=== PATIENT | female | born 1950 | race Caucasian/White ===

== ENCOUNTER → 2016-12-25 | Outpatient (CLI) | payer OTHER ==
[~2016-12-25] MED LIST: ALBU1AER9 INH; ATOR10TA88 PO; CALC-445 PO; CYCL10TA6 PO; FEXO1TAB46 PO; LORA-741 PO; OMEP20CA9 PO; PARO1TAB29 PO; PTDOPS OPB; VALS40TA2 PO; ZNTT/150 PO
--- NOTE | 2016-12-25 16:13 | MAMMOGRAPHY REPORT ---
BILATERAL DIGITAL SCREENING MAMMOGRAM WITH CAD: 12/25/2016 CLINICAL HISTORY: Routine screening examination. TECHNIQUE: Bilateral CC and MLO views were obtained. Current study was also evaluated with a Compute r Aided Detection (CAD) system. COMPARISON: Comparison is made to exams dated: 03/03/2013 mammogram, 03/10/2014 mammogram, 02/26/2011 m ammogram, and 02/02/2010 mammogram - [facility]. BREAST COMPOSITION: The tissue of both breasts is heterogeneously dense, which may obscure small ma sses. FINDINGS: There are groupings of round and punctate microcalcifications in the anterior right breast , and throughout the medial left breast that appear similar on all available prior mammograms dating back to at least 03/10/2008, therefore likely benign. No new suspicious mass, architectural distor tion or cluster of microcalcifications is seen. IMPRESSION: ACR BI-RADS CATEGORY 1: NEGATIVE There is no mammographic evidence of malignancy. A 1 year screening mammogram is recommended. The p atient will receive written notification of the results. Approximately 10% of breast cancers are not detected with mammography. A negative mammographic repor t should not delay biopsy if a clinically suggestive mass is present. Prudence Brody M.D. ay/:12/25/2016 13:37:33 Carpet Installer: Sangita GARCIA)(M), [facility] letter sent: Normal 1/2 BI-RADS Code: ACR BI-RADS Category 1: Negative
== END | disposition home or self-care (01) ==
LOC: C.MAMM 12:31
PROVIDERS: ATTEND Family Medicine
DX: Z12.31 Encounter for screening mammogram for malignant neoplasm of breast (principal)

== ENCOUNTER 2017-09-12 13:49 | Emergency (ER) | payer OTHER ==
[~2017-09-12] VITALS: Ht 152.4 cm; Wt 79.6 kg
[~2017-09-12 13:49] MED LIST changes: +ATOR10TA82 PO; -ATOR10TA88 PO
[2017-09-12 13:54] VITALS: TEMP 37; Ht 152.4 cm; Wt 79.6 kg
[2017-09-12 15:25] VITALS: O2SAT 97
--- NOTE | 2017-09-12 15:28 | DIAGNOSTIC IMAGING REPORT ---
SINGLE VIEW CHEST CLINICAL HISTORY: Hypertension. FINDINGS: An AP, portable, upright chest radiograph is obtained. No prior studies are available for comparison at the time of dictation. The examination is degraded by portable technique and apical ectopic positioning. The heart is top normal for projection and there is atherosclerotic calcification of the thoracic aorta. The pulmonary vasculature is noncongested. The lungs and pleural spaces are clear. No pneumothorax is seen. The skeletal structures are osteopenic. Chronic posttraumatic deformity is seen in the left proximal humerus. IMPRESSION: No acute cardiopulmonary abnormality. Electronically signed by: Andrae Chong M.D. 09/12/2017 3:26 PM Dictated Date/Time: 09/12/2017 3:25 PM
[2017-09-12 15:36] LABS: BASO % 0.4 %; BASO ABS # 0.03 K/uL (0-0.2); COMPLETE YES; EOS % 2.4 %; HEMATOCRIT 42.3 % (37-47); IG% 0.3 %; LYMPH ABS # 1.74 K/uL (1.2-3.4); MEAN CELL VOLUME 91.4 fL (80-100); MEAN CORPUSCULAR HEMOGLOBIN 29.4 pg (25-34); MEAN CORPUSCULAR HGB CONC 32.2 g/dl (32-36); MEAN PLATELET VOLUME 12.1 fL (7.4-10.4); MONO % 9.1 %; NEUT % 61.8 %; PLATELET COUNT 176 K/uL (130-400); RED BLOOD COUNT 4.63 M/uL (4.2-5.4); WHITE BLOOD COUNT 6.68 K/uL (4.8-10.8)
[2017-09-12 15:45] LABS: INR 0.9 (0.9-1.1); PARTIAL THROMBOPLASTIN RATIO 1.4; PROTHROMBIN TIME (PATIENT) 9.8 SECONDS (9.0-12.0)
[2017-09-12] MEDS ORDERED: ALBU18002 INH (15:50)
[2017-09-12] MEDS ORDERED: CALCCAP15 PO (15:50)
[2017-09-12] MEDS ORDERED: VALS40TA2 PO (15:50)
[2017-09-12] MEDS ORDERED: EYE DROPS OPB (15:52)
[2017-09-12 15:53] LABS: ALT/SGPT 20 U/L (12-78); AST/SGOT 16 U/L (15-37); BLOOD UREA NITROGEN 14 mg/dl (7-18); BUN/CREATININE RATIO 14.8 (10-20); CALCIUM 9.1 mg/dl (8.5-10.1); CARBON DIOXIDE 28 mmol/L (21-32); CHLORIDE 106 mmol/L (98-107); CREATININE 0.92 mg/dl (0.60-1.20); GLUCOSE 91 mg/dl (70-99); SODIUM 141 mmol/L (136-145)
[2017-09-12 16:04] LABS: ALKALINE PHOSPHATASE 73 U/L (45-117)
[2017-09-12 16:44] LABS: URINE APPEARANCE CLEAR (CLEAR); URINE BILIRUBIN NEG (NEG); URINE COLOR YELLOW; URINE NITRITE NEG (NEG); URINE SPECIFIC GRAVITY 1.006 (1.000-1.030); UROBILINOGEN NEG (NEG)
[2017-09-12] MEDS ORDERED: VALSARTAN 80 MG TAB PO STA (16:46)
[2017-09-12 16:56] LABS: MANUAL MICROSCOPIC REQUIRED? NO; REVIEW REQ? NO
--- NOTE | 2017-09-12 18:20 | EMERGENCY ROOM VISIT NOTE ---
History Report prepared by Kishore: Ketan Frederick Under the Supervision of: Dr. Gideon Condon M.D. First contact with patient: 14:44 Chief Complaint: HYPERTENSION Stated Complaint: HIGH BLOOD PRESSURE History of Present Illness The patient is a 66 year old female who presents to the Emergency Room with complaints of persistent hypertension beginning about a month ago. She states that her blood pressure was found to be 197/117 shortly prior to arrival. She is on 40 mg Diovan for HTN. The patient notes that she just had cataract surgery earlier this week as well as 17 days ago. She states that her blood pressure had been running high since before the surgery. She was seen by her PCP the day before her first surgery 18 days ago, but did not have her blood pressure medications changed. The patient also complains of a headache in various parts of her head, and generalized weakness. She notes that her vision is blurred, but she is unsure if this is due to the surgery. The patient has been taking her blood pressure regularly at home. Pt denies LOC, chills, diaphoresis, neck pain, chest pain, breathing difficulties, nausea, vomiting, abdominal pain, back pain, melena, hematochezia, urinary symptoms, numbness, weakness, lymphadenopathy, rash, or other complaints. She states that she occasionally feels feverish. Source of History: patient Onset: about a month ago Symptom Intensity: 197/117 Quality: other (hypertension) Timing: other (persistent) Associated Symptoms: + headache, + weakness (generalized) Review of Systems See HPI for pertinent positives and negatives. A total of ten systems were reviewed and were otherwise negative. Past Medical & Surgical Medical Problems: (1) Hypertension Nos Surgical Problems: (1) History of appendectomy (2) History of hysterectomy (3) History of lumpectomy (4) History of tonsillectomy Family History FHx: cancer Hypertension Social History Smoking Status: Never Smoker Alcohol Use: none Drug Use: none Marital Status: Housing Status: lives with family Occupation Status: retired Current/Historical Medications Scheduled Albuterol Sulfate (Proair Respiclick), 2 PUFFS INH PRN Atorvastatin (Lipitor), 10 MG PO DAILY Calcium Carbonate-Cholecalcife (Calcium Plus Vitamin D3), 1 CAP PO DAILY Fexofenadine Hcl (Malika), 180 MG PO DAILY Omeprazole (Prilosec), 20 MG PO DAILY Paroxetine (Paxil), 40 MG PO DAILY Ranitidine (Zantac), 150 MG PO BID Valsartan (Diovan), 40 MG PO DAILY [Eye Drops], 1 DROP OPB UD Scheduled PRN Cyclobenzaprine Hcl (Flexeril), 10 MG PO TID PRN for Pain Lorazepam (Ativan), 0.5-1 MG PO TID PRN for Anxiety/Agitation Allergies Coded Allergies: Molds and Smuts (Unverified Allergy, Mild, 09/12/17) Sulfa Drugs (Unverified Allergy, Mild, 09/12/17) Tetracycline (Unverified Allergy, Mild, 09/12/17) Minocycline (Unverified Allergy, Unknown, Unknown, 09/12/17) Penicillins (Verified Allergy, Unknown, RASH, 01/31/15) Physical Exam Vital Signs Date Time Temp Pulse Resp B/P (MAP) Pulse Ox O2 Delivery O2 Flow Rate FiO2 09/12/17 16:19 70 18 197/119 96 Room Air 09/12/17 15:31 65 09/12/17 15:26 67 18 219/127 96 Room Air 09/12/17 15:25 97 Room Air 09/12/17 15:25 97 Room Air 09/12/17 13:54 37.0 77 20 178/119 97 Room Air Physical Exam GENERAL: Awake, alert, well appearing, no distress HENT: Normocephalic, atraumatic. TM's normal. Oropharynx unremarkable. EYES: PERRL. EOMI. Normal conjunctiva. Sclera non-icteric. NECK: Supple. No nuchal rigidity. FROM. No JVD or bruit. RESPIRATORY: CTA CARDIAC: RRR. No murmur. ABDOMEN: Soft, non distended. No tenderness to palpation. No rebound or guarding. No masses. RECTAL: Deferred. MUSCULOSKELETAL: Unremarkable. No edema. No discoloration. Gross motor strength symmetric. NEURO: Cranial nerves 2-12 grossly intact. Normal sensorium. No sensory or motor deficits noted. Speech normal. No pronator drift. SKIN: No rash or jaundice noted. LYMPH: No adenopathy. Medical Decision & Procedures ER Provider Diagnostic Interpretation: X-ray: Per my interpretation, radiologist review. SINGLE VIEW CHEST FINDINGS: An AP, portable, upright chest radiograph is obtained. No prior studies are available for comparison at the time of dictation. The examination is degraded by portable technique and apical ectopic positioning. The heart is top normal for projection and there is atherosclerotic calcification of the thoracic aorta. The pulmonary vasculature is noncongested. The lungs and pleural spaces are clear. No pneumothorax is seen. The skeletal structures are osteopenic. Chronic posttraumatic deformity is seen in the left proximal humerus. IMPRESSION: No acute cardiopulmonary abnormality. Electronically signed by: Andrae Chong M.D. 09/12/2017 3:26 PM Laboratory Results 09/12/17 15:09 Red Blood Count 4.63, Mean Corpuscular Volume 91.4, Mean Corpuscular Hemoglobin 29.4, Mean Corpuscular Hemoglobin Concent 32.2, Mean Platelet Volume 12.1, Neutrophils (%) (Auto) 61.8, Lymphocytes (%) (Auto) 26.0, Monocytes (%) (Auto) 9.1, Eosinophils (%) (Auto) 2.4, Basophils (%) (Auto) 0.4, Neutrophils # (Auto) 4.12, Lymphocytes # (Auto) 1.74, Monocytes # (Auto) 0.61, Eosinophils # (Auto) 0.16, Basophils # (Auto) 0.03 09/12/17 15:09 Test 09/12/17 15:09 09/12/17 16:15 White Blood Count 6.68 K/uL (4.8-10.8) Red Blood Count 4.63 M/uL (4.2-5.4) Hemoglobin 13.6 g/dL (12.0-16.0) Hematocrit 42.3 % (37-47) Mean Corpuscular Volume 91.4 fL (80-100) Mean Corpuscular Hemoglobin 29.4 pg (25-34) Mean Corpuscular Hemoglobin Concent 32.2 g/dl (32-36) Platelet Count 176 K/uL (130-400) Mean Platelet Volume 12.1 fL (7.4-10.4) Neutrophils (%) (Auto) 61.8 % Lymphocytes (%) (Auto) 26.0 % Monocytes (%) (Auto) 9.1 % Eosinophils (%) (Auto) 2.4 % Basophils (%) (Auto) 0.4 % Neutrophils # (Auto) 4.12 K/uL (1.4-6.5) Lymphocytes # (Auto) 1.74 K/uL (1.2-3.4) Monocytes # (Auto) 0.61 K/uL (0.11-0.59) Eosinophils # (Auto) 0.16 K/uL (0-0.5) Basophils # (Auto) 0.03 K/uL (0-0.2) RDW Standard Deviation 46.4 fL (36.4-46.3) RDW Coefficient of Variation 13.8 % (11.5-14.5) Immature Granulocyte % (Auto) 0.3 % Immature Granulocyte # (Auto) 0.02 K/uL (0.00-0.02) Prothrombin Time 9.8 SECONDS (9.0-12.0) Prothromb Time International Ratio 0.9 (0.9-1.1) Activated Partial Thromboplast Time 36.4 SECONDS (21.0-31.0) Partial Thromboplastin Ratio 1.4 Anion Gap 7.0 mmol/L (3-11) Est Creatinine Clear Calc Drug Dose 56.2 ml/min Estimated GFR () 75.2 Estimated GFR (Non- 64.9 BUN/Creatinine Ratio 14.8 (10-20) Calcium Level 9.1 mg/dl (8.5-10.1) Total Bilirubin 0.3 mg/dl (0.2-1) Direct Bilirubin < 0.1 mg/dl (0-0.2) Aspartate Amino Transf (AST/SGOT) 16 U/L (15-37) Alanine Aminotransferase (ALT/SGPT) 20 U/L (12-78) Alkaline Phosphatase 73 U/L (45-117) Troponin I < 0.015 ng/ml (0-0.045) Total Protein 7.7 gm/dl (6.4-8.2) Albumin 4.0 gm/dl (3.4-5.0) Lipase 212 U/L (73-393) Thyroid Stimulating Hormone (TSH) 1.520 uIu/ml (0.300-4.500) Urine Color YELLOW Urine Appearance CLEAR (CLEAR) Urine pH 7.0 (4.5-7.5) Urine Specific Falcon 1.006 (1.000-1.030) Urine Protein NEG (NEG) Urine Glucose (UA) NEG (NEG) Urine Ketones NEG (NEG) Urine Occult Blood NEG (NEG) Urine Nitrite NEG (NEG) Urine Bilirubin NEG (NEG) Urine Urobilinogen NEG (NEG) Urine Leukocyte Esterase NEG (NEG) Laboratory results reviewed by me Medications Administered Medications (Trade) Dose Ordered Sig/Pamela Route Start Time Stop Time Status Last Admin Dose Admin Valsartan (Diovan Tab) 80 mg NOW STAT PO 09/12/17 16:46 09/12/17 16:47 DC 09/12/17 18:01 80 MG ECG Indication: other (hypertension) Rate (beats per minute): 67 Rhythm: normal sinus Findings: RBBB, no acute ischemic change, no ectopy ED Course 145: The patient was evaluated in room B4B. A complete history and physical exam was performed. 1637: I reassessed the patient. She is resting comfortably. 1645: Ordered Diovan Tab 80 mg PO. 1814: the patient was reassessed. She is asymptomatic. She has elevated blood pressure. She was given Diovan 80 mg. I discussed conservative management with the patient. The patient and her feel very comfortable. Medical Decision Prior records/ancillary studies reviewed regarding the history above. Triage Nursing notes reviewed and agree them. Additional history obtained from the family. The patient's history was concerning for hypertension. Differential diagnosis: Etiologies such as hypertensive urgency, hypertensive emergency, benign hypertension, cardiovascular pathology, pheochromocytoma, electrolyte abnormality, renal disease, endorgan damage, as well as others were entertained. Physical examination: As above. ER treatment provided: Oral Diovan On reassessment the patient felt better. Diagnostic interpretation by me: The electrocardiogram was negative for pathologic change. The labs revealed an unremarkable CBC and chemistry panel. LFTs unremarkable. TSH and troponin negative. Urinalysis negative. Imaging studies: Chest x-ray as above. Prior records reviewed. Over the last 4 years the patient has had hypertension noted. She had hypertension prior to her cataract surgeries. She had hypertension noted by anesthesia in her cataract surgeries. The patient has monitored her blood pressure at home and she has been hypertensive. She is asymptomatic with regards to her hypertension. She is not having severe headaches, chest pain, or other issues to suggest hypertensive emergency. The patient is doing very well at this time. I discussed conservative management. The patient and her feel the same is very reasonable. I did discuss her medication dosing with pharmacy. She is on a very small dose of Diovan. She has been on this medication at the same dose for the last year. She will start at 80 mg daily. That was given today. She will monitor her blood pressure closely. If she has any issue she will come back to the Emergency Room she will follow-up closely first thing next week with her primary clinic. By the evaluation outlined above emergent etiologies such as hypertensive emergency, pheochromocytoma, endorgan damage, cardiac ischemia, aortic dissection, pulmonary embolism, pneumonia, pneumothorax, infections, gastrointestinal, as well as others were deemed relatively unlikely. The patient and were informed about the findings as listed above. All questions were answered and they were very pleased with the treatment. Return instructions were outlined and the patient was discharged in stable condition. Outpatient prescription management: Increased Diovan to 80 mg daily Referral: The patient was referred back to her primary care physician for follow-up in 3- 4 days for a recheck of the current condition. Medication Reconcilliation Current Medication List: was personally reviewed by me Blood Pressure Screening Patient's blood pressure: Elevated blood pressure Blood pressure disposition: Referred to PCP Impression Primary Impression: HTN (hypertension) Scribe Attestation The scribe's documentation has been prepared under my direction and personally reviewed by me in its entirety. I confirm that the note above accurately reflects all work, treatment, procedures, and medical decision making performed by me. Departure Information Dispostion Home / Self-Care Referrals Leroy Lara M.D. (PCP) Patient Instructions My [facility] Additional Instructions Increase Diovan to 80 mg daily. Take her blood pressure 3-4 times a day and record this for your primary follow- up. Follow-up with your primary doctor first thing next week. Continue other current medications. Return to the ER for worsening blood pressure problems, passing out, severe headache, chest pain, difficulty breathing, fevers, vomiting, worsening of your condition, or as needed.
[2017-09-12 18:37] VITALS: BP 202/106; PULSE 64; O2SAT 94
== END 2017-09-12 19:06 | disposition home or self-care (01) ==
LOC: C.EDB 13:50
DX: I10 Essential (primary) hypertension (principal)

== ENCOUNTER → 2017-12-29 | Outpatient (CLI) | payer OTHER ==
[~2017-12-29] MED LIST changes: +ALBU18002 INH; -ALBU1AER9 INH; -CALC-445 PO; +CALCCAP15 PO; +EYE DROPS OPB; -PTDOPS OPB
--- NOTE | 2017-12-29 15:04 | MAMMOGRAPHY REPORT ---
BILATERAL DIGITAL SCREENING MAMMOGRAM TOMOSYNTHESIS WITH CAD: 12/29/2017 CLINICAL HISTORY: Routine screening. Patient has no complaints. TECHNIQUE: Breast tomosynthesis in addition to standard 2D mammography was performed. Current study was also evaluated with a Computer Aided Detection (CAD) system. COMPARISON: Comparison is made to exams dated: 12/25/2016 mammogram, 03/10/2014 mammogram, 03/03/2013 ma mmogram, 02/28/2012 mammogram, 02/26/2011 mammogram, and 02/02/2010 mammogram - [facility] er. BREAST COMPOSITION: The tissue of both breasts is heterogeneously dense, which may obscure small mas ses. FINDINGS: There are stable regional punctate microcalcifications in the lower inner quadrant of the l eft breast, and a few stable punctate microcalcifications in the right breast as well. No new suspic ious mass, architectural distortion or cluster of microcalcifications is seen. IMPRESSION: ACR BI-RADS CATEGORY 1: NEGATIVE There is no mammographic evidence of malignancy. A 1 year screening mammogram is recommended. The pa tient will receive written notification of the results. Approximately 10% of breast cancers are not detected with mammography. A negative mammographic report should not delay biopsy if a clinically suggestive mass is present. Prudence Brody M.D. ay/:12/29/2017 14:01:01 Assembler Corncob Pipes: Zabrina LEMA(R)(M), [facility] letter sent: Normal 1/2 BI-RADS Code: ACR BI-RADS Category 1: Negative
== END | disposition home or self-care (01) ==
LOC: C.MAMM 13:39
PROVIDERS: ATTEND Family Medicine
DX: Z12.31 Encounter for screening mammogram for malignant neoplasm of breast (principal)

== ENCOUNTER 2018-01-30 15:47 | Emergency (ER) | payer OTHER ==
[~2018-01-30] VITALS: Ht 152.4 cm; Wt 80.4 kg
[~2018-01-30 15:47] MED LIST changes: +RANI150T85 PO; -ZNTT/150 PO
[2018-01-30 15:51] VITALS: TEMP 36.7; Ht 152.4 cm; Wt 80.4 kg
--- NOTE | 2018-01-30 16:34 | DIAGNOSTIC IMAGING REPORT ---
R HAND MIN 3 VIEWS ROUTINE CLINICAL HISTORY: Right hand pain status post trauma COMPARISON: None. DISCUSSION: The bones are mildly osteopenic. There are mild osteoarthritic changes present. No acute fractures or dislocations are visualized. IMPRESSION: No acute fractures or dislocations identified. Electronically signed by: Ángel Phillips M.D. 01/30/2018 4:32 PM Dictated Date/Time: 01/30/2018 4:31 PM
[2018-01-30 17:25] VITALS: BP 146/102; PULSE 83; O2SAT 96
--- NOTE | 2018-01-30 19:54 | EMERGENCY ROOM VISIT NOTE ---
ED Visit Note First contact with patient: 15:57 CHIEF COMPLAINT: Hand injury HISTORY OF PRESENT ILLNESS: This 67 year old female patient presented to the emergency department after they injured the right hand 2 weeks ago. Evidently the patient was putting logs into her wood-burning stove at home, when she struck her hand. She is here in the emergency department today because her has elevated blood pressure, and she decided it would be worth getting her hand checked out while she was here. The patient rates the pain as dull and 3/10. The patient denies any numbness or tingling. The patient does not have injuries to the wrist. The patient has not had a previous fracture to this hand. REVIEW OF SYSTEMS: A 6 system review of systems was completed with positives and pertinent negatives in the HPI. ALLERGIES: See EMR MEDICATIONS: See EMR PMH: No pertinent chronic medical disease SOCIAL HISTORY: Lives at home with PHYSICAL EXAM: Vital Signs: Reviewed Nurse's notes, vital signs stable. GENERAL : White female, in no acute distress, but appears to be in pain, well-developed , well-nourished. MUSCULOSKELETAL: There is no deformity of the right hand. There is tenderness across the fourth and fifth metacarpals. There is no thenar or hypothenar eminence atrophy. Normal thumb opposition to all fingers. Digital Marketer strength 5/5. There is no laceration. Capillary refill less than 2 seconds. No tenderness of the fingers or wrist. Full range of motion of the wrist. No snuff box tenderness. Radial pulse 2+. NEURO: Alert and oriented to person, place, and time. Normal sensation to light and sharp touch. R HAND MIN 3 VIEWS ROUTINE CLINICAL HISTORY: Right hand pain status post trauma COMPARISON: None. DISCUSSION: The bones are mildly osteopenic. There are mild osteoarthritic changes present. No acute fractures or dislocations are visualized. IMPRESSION: No acute fractures or dislocations identified. EMERGENCY DEPARTMENT COURSE: I examined the patient. An x-ray of the right hand was reviewed by myself and radiology no acute fracture dislocation and shows [] . The patient was discharged home in good condition. Problem List Medical Problems: (1) Hypertension Nos Status: Chronic Surgical Problems: (1) History of appendectomy Status: Resolved (2) History of hysterectomy Status: Resolved (3) History of lumpectomy Status: Resolved (4) History of tonsillectomy Status: Resolved Current/Historical Medications Scheduled Albuterol Sulfate (Proair Respiclick), 2 PUFFS INH PRN Atorvastatin (Lipitor), 10 MG PO DAILY Calcium Carbonate-Cholecalcife (Calcium Plus Vitamin D3), 1 CAP PO DAILY Fexofenadine Hcl (Malika), 180 MG PO DAILY Omeprazole (Prilosec), 20 MG PO DAILY Paroxetine (Paxil), 40 MG PO DAILY Ranitidine (Zantac), 150 MG PO BID Valsartan (Diovan), 40 MG PO DAILY [Eye Drops], 1 DROP OPB UD Scheduled PRN Cyclobenzaprine Hcl (Flexeril), 10 MG PO TID PRN for Pain Lorazepam (Ativan), 0.5-1 MG PO TID PRN for Anxiety/Agitation Allergies Coded Allergies: Molds and Smuts (Unverified Allergy, Mild, 09/12/17) Sulfa Drugs (Unverified Allergy, Mild, 09/12/17) Tetracycline (Unverified Allergy, Mild, 09/12/17) Minocycline (Unverified Allergy, Unknown, Unknown, 09/12/17) Penicillins (Verified Allergy, Unknown, RASH, 01/31/15) Vital Signs Date Time Temp Pulse Resp B/P (MAP) Pulse Ox O2 Delivery O2 Flow Rate FiO2 01/30/18 17:25 83 20 146/102 96 01/30/18 15:51 36.7 76 20 159/93 96 Departure Information Impression Primary Impression: Injury of right hand Dispostion Home / Self-Care Condition GOOD Forms HOME CARE DOCUMENTATION FORM, IMPORTANT VISIT INFORMATION Patient Instructions My [facility] Additional Instructions You were seen and evaluated today on an emergency basis only. This is not a substitute for, or an effort to provide, complete comprehensive medical care. It is not possible to recognize and treat all injuries or illnesses in a single emergency department visit. For this reason it is recommended that you followup with your primary care physician with any ongoing or persisting symptoms. You are welcome to return to the emergency department anytime with new, worsening, or concerning symptoms.
== END 2018-01-30 17:25 | disposition home or self-care (01) ==
LOC: C.EDB 15:48 → C.EDD 17:25
DX: S69.91XA Unspecified injury of right wrist, hand and finger(s), initial encounter (principal); W22.8XXA Striking against or struck by other objects, initial encounter; Y92.009 Unspecified place in unspecified non-institutional (private) residence as the place of occurrence of the external cause; I10 Essential (primary) hypertension; Z88.0 Allergy status to penicillin; Z88.2 Allergy status to sulfonamides; Z88.1 Allergy status to other antibiotic agents; Z91.048 Other nonmedicinal substance allergy status